=== PATIENT | female | born 2000 | race Hispanic/Latino ===

== ENCOUNTER → 2020-09-03 | Emergency (ER) | payer SELFPAY ==
[~2020-09-03] VITALS: Ht 167.6 cm; Wt 85.7 kg
[~2020-09-03] MED LIST: CEPHALEXIN500 MG PO
== END | disposition home or self-care (01) ==
LOC: ER 16:00
DX: S60.151A Contusion of right little finger with damage to nail, initial encounter (principal); W22.09XA Striking against other stationary object, initial encounter; Y92.008 Other place in unspecified non-institutional (private) residence as the place of occurrence of the external cause
CPT/HCPCS: 99283

== ENCOUNTER 2021-03-15 20:27 | Emergency (ER) | payer SELFPAY ==
[~2021-03-15] VITALS: Ht 167.6 cm; Wt 85.7 kg
== END 2021-03-15 22:45 | disposition home or self-care (01) ==
LOC: ER 21:09
DX: U07.1 COVID-19 (principal); R05.9 Cough, unspecified; R11.2 Nausea with vomiting, unspecified
CPT/HCPCS: 99283; U0002

== ENCOUNTER 2021-05-25 17:09 | Emergency (ER) | payer SELFPAY ==
[~2021-05-25] VITALS: Ht 167.6 cm; Wt 85.7 kg
[2021-05-25] MEDS ORDERED: KETOROLAC TROMETHAMINE 60 MG/2 ML VIAL IM ONE (17:30)
[2021-05-25 18:25] LABS: CLARITY,URINE CLOUDY (CLEAR); COLOR,URINE AMBER (YELLOW); KETONES,URINE 1+ (NEGATIVE); LEUKOCYTE ESTERASE ,URINE NEGATIVE (NEGATIVE); NITRITE,URINE NEGATIVE (NEGATIVE); PROTEIN,URINE DIPSTICK 2+ (NEGATIVE); URINE UROBILINOGEN 1 mg/dL (0.2 - 1)
[2021-05-25 18:29] LABS: BACTERIA,URINE MODERATE /HPF; EPITHELIAL CELLS,URINE MODERATE /LPF; MUCUS,URINE MODERATE (RARE); RBC,URINE 21-50 /HPF (0-5); TRANSITIONAL EPI CELLS,URINE FEW
[2021-05-25] MEDS ORDERED: CIPRO500 MG PO (19:53)
[2021-05-25] MEDS ORDERED: BACTRIM DS TAB1 EACH PO (19:53)
[2021-05-25] MEDS ORDERED: ULTRAM 50MG50 MG PO (19:54)
[2021-05-25 20:06] VITALS: BP 129/78
== END 2021-05-25 20:07 | disposition home or self-care (01) ==
LOC: ER 17:40
DX: N39.0 Urinary tract infection, site not specified (principal); R10.9 Unspecified abdominal pain; Z91.018 Allergy to other foods
CPT/HCPCS: 74176; 81001; 81025; 99283; J1885

== ENCOUNTER 2021-08-12 19:10 | Emergency (ER) | payer SELFPAY ==
[~2021-08-12] VITALS: Ht 167.6 cm; Wt 85.7 kg
[~2021-08-12 19:10] MED LIST changes: +BACTRIM DS TAB1 EACH PO; +CIPRO500 MG PO; +ULTRAM 50MG50 MG PO
[2021-08-12] MEDS ORDERED: PREDNISONE20 MG PO (20:55)
[2021-08-12] MEDS ORDERED: VENTOLIN HFA18 GM INH (20:55)
== END 2021-08-12 21:14 | disposition home or self-care (01) ==
LOC: ER 19:15
DX: J20.5 Acute bronchitis due to respiratory syncytial virus (principal); R51.9 Headache, unspecified; Z20.822 Contact with and (suspected) exposure to COVID-19
CPT/HCPCS: 83518; 87070; 99283; U0002